=== PATIENT | male | born 1990 | race Caucasian/White ===

== ENCOUNTER 2020-08-23 06:14 | Day surgery (SDC) | payer OTHER ==
[2020-08-23] MEDS ORDERED: LACTATED RINGERS 1,000 ML IV ONE (07:11)
[2020-08-23] MEDS ORDERED: MIDAZOLAM 2 MG/2 ML VIAL ONE (07:27)
[2020-08-23] MEDS ORDERED: fentaNYL 250 MCG/5 ML VIAL ONE (07:27)
[2020-08-23] MEDS ORDERED: PROPOFOL 200 MG/20 ML VIAL IVP ONE (07:46)
[2020-08-23] MEDS ORDERED: LACTATED RINGERS 300 ML IV ONE (08:04)
[2020-08-23 08:34] VITALS: BP 106/77
--- NOTE | 2020-08-23 08:50 | ANESTHESIA POST OP EVALUATION ---
Anesthesia Post Eval - Post Anesthesia Eval Vitals: Last Vital Signs Temp 36.0 C L 08/23/20 08:33 Pulse 65 08/23/20 08:33 Resp 16 08/23/20 08:33 BP 106/77 08/23/20 08:33 Pulse Ox 100 08/23/20 08:33 CV Function Including HR & BP: Stable Pain Control: Satisfactory Nausea & Vomiting: Negative Mental Status: Baseline Respiratory Status: Airway Patent Hydration Status: Satisfactory Anesthesia Complications: None
== END 2020-08-23 06:15 | disposition home or self-care (01) ==
LOC: SDS 06:14
PROVIDERS: ATTEND Surgery
PROC: 0DBP8ZX Excision of Rectum, Via Natural or Artificial Opening Endoscopic, Diagnostic (ICD-10-PCS; principal; 2020-08-23 07:30)
DX: Z12.11 Encounter for screening for malignant neoplasm of colon (principal); K58.1 Irritable bowel syndrome with constipation; J45.909 Unspecified asthma, uncomplicated; F41.9 Anxiety disorder, unspecified; F90.9 Attention-deficit hyperactivity disorder, unspecified type; Z80.0 Family history of malignant neoplasm of digestive organs; Z79.899 Other long term (current) drug therapy; Z72.89 Other problems related to lifestyle
CPT/HCPCS: 45380; J3010; J7120; 88305